=== PATIENT | male | born 1985 | race Native Hawaiian/Other Pacific Islander ===

== ENCOUNTER 2023-01-29 00:12 | Emergency (ER) | payer OTHER ==
[~2023-01-29] VITALS: Ht 185.4 cm; Wt 117.9 kg
[2023-01-29 00:12] VITALS: TEMP 98.9
[2023-01-29 00:52] LABS: POTASSIUM 3.2 mmol/L (3.6-5.2)
[2023-01-29 01:14] LABS: PLATELET COUNT 261 K/uL (142-355)
[2023-01-29 03:08] VITALS: BP 130/88
== END 2023-01-29 03:08 | disposition home or self-care (01) ==
LOC: ED 00:12
PROVIDERS: Emergency Medicine
DX: M54.59 Other low back pain (principal); G89.29 Other chronic pain; R82.5 Elevated urine levels of drugs, medicaments and biological substances; V48.5XXA Car driver injured in noncollision transport accident in traffic accident, initial encounter; Y92.89 Other specified places as the place of occurrence of the external cause
CPT/HCPCS: 36415; 80053; 80307; 80320; 81002; 85027; 93005; 96374; 99284; J1885